=== PATIENT | male | born 1975 | race Two or more races ===

== ENCOUNTER 2018-06-12 14:41 | Emergency (ER) | payer SELFPAY ==
[2018-06-12] MEDS ORDERED: CONTRAST GIVEN. MC (16:45)
[2018-06-12 16:57] LABS: ADD MAN DIFF? NO
[2018-06-12 17:01] LABS: BASO # 0.1 x10^3/uL (0.0-0.2); BASO % 1 % (0-3); EOS # 0.3 x10^3/uL (0.0-0.7); EOS % 4 % (0-3); HEMATOCRIT 46.8 % (39.0-53.0); HEMOGLOBIN 16.1 g/dL (13.0-17.5); LYMPH # 2.5 x10^3/uL (1.0-4.8); LYMPH % 33 % (24-48); MEAN CORPUSCULAR HEMOGLOBIN 31 pg (25-35); MEAN CORPUSCULAR HGB CONC 35 g/dL (31-37); MEAN CORPUSCULAR VOLUME 89 fL (79-100); MONO # 0.7 x10^3/uL (0.0-1.1); MONO % 9 % (0-9); NEUT # 3.9 x10^3uL (1.8-7.7); NEUT % 52 % (31-73); PLATELET COUNT 233 x10^3/uL (140-400); RED BLOOD COUNT 5.28 x10^6/uL (4.30-5.70); RED CELL DISTRIBUTION WIDTH 13.6 % (11.5-14.5); WHITE BLOOD COUNT 7.4 x10^3/uL (4.0-11.0)
[2018-06-12] MEDS: fentaNYL PF VIAL 100 MCG/2 ML VIAL IV (17:03)
[2018-06-12] MEDS: ONDANSETRON PF 4 MG/2 ML VIAL. IV (17:03)
[2018-06-12 17:04] LABS: BILIRUBIN,URINE NEGATIVE (NEG); COLOR,URINE YELLOW; GLUCOSE,URINE NEGATIVE (NEG); NITRITE,URINE NEGATIVE (NEG); PROTEIN,URINE NEGATIVE (NEG-TRACE)
[2018-06-12 17:09] LABS: CLARITY,URINE HAZY
[2018-06-12 17:10] LABS: AMORPHOUS SEDIMENT,UR PRESENT /HPF; BACTERIA,URINE 0 /HPF (0-FEW); RBC,URINE 0 /HPF (0-2); SQUAMOUS EPITHELIAL CELL,UR FEW /LPF; WBC,URINE 0 /HPF (0-4)
[2018-06-12 17:11] LABS: ANION GAP 2 (6-14); BLOOD UREA NITROGEN 16 mg/dL (8-26); BUN/CREATININE RATIO 12 (6-20); CALCIUM 8.8 mg/dL (8.5-10.1); CARBON DIOXIDE 35 mmol/L (21-32); CHLORIDE 104 mmol/L (98-107); CREATININE 1.3 mg/dL (0.7-1.3); GFR 61.1; GLUCOSE 97 mg/dL (70-99); POTASSIUM 3.8 mmol/L (3.5-5.1); SODIUM 141 mmol/L (136-145)
[2018-06-12 17:17] LABS: ALBUMIN 3.7 g/dL (3.4-5.0); ALK PHOS 113 U/L (46-116); ALT (SGPT) 63 U/L (16-63); AST (SGOT) 27 U/L (15-37); LIPASE 160 U/L (73-393); TOTAL BILIRUBIN 0.3 mg/dL (0.2-1.0); TOTAL PROTEIN 7.3 g/dL (6.4-8.2)
[2018-06-12] MEDS: IOHEXOL 300 MG/ML 100ML VIAL. IV (17:42)
== END 2018-06-12 18:24 | disposition home or self-care (01) ==
LOC: ER 18:24
DX: S39.011A Strain of muscle, fascia and tendon of abdomen, initial encounter (principal); R19.7 Diarrhea, unspecified; X50.0XXA Overexertion from strenuous movement or load, initial encounter; Y93.89 Activity, other specified; Y92.89 Other specified places as the place of occurrence of the external cause; Y99.8 Other external cause status
CPT/HCPCS: 36415; 74177; 76870; 80053; 81001; 83690; 85025; 96374; 96375; 99285-25; J2405; J3010; Q9967